=== PATIENT | female | born 1970 | race Two or more races ===

== ENCOUNTER 2021-01-04 10:40 | Emergency (ER) | payer OTHER ==
[~2021-01-04] VITALS: Ht 162.6 cm; Wt 90.7 kg
[2021-01-04] MEDS ORDERED: ZYRTEC10 M3 PO (10:59)
[2021-01-04] MEDS ORDERED: SINGULAIR 10MG10 MG PO (10:59)
[2021-01-04] MEDS ORDERED: AVAPRO300 MG PO (10:59)
[2021-01-04] MEDS ORDERED: FLONASE ALLERG9.9 ML NS (10:59)
[2021-01-04] MEDS ORDERED: PROVENTIL HFA6.7 GM IH (11:00)
[2021-01-04] MEDS ORDERED: KETO10TA2 PO (13:33)
== END 2021-01-04 14:27 | disposition home or self-care (01) ==
LOC: ER 10:40
DX: S93.492A Sprain of other ligament of left ankle, initial encounter (principal); W10.8XXA Fall (on) (from) other stairs and steps, initial encounter; Y93.89 Activity, other specified; Y92.098 Other place in other non-institutional residence as the place of occurrence of the external cause; Y99.8 Other external cause status